=== PATIENT | male | born 1970 | race Caucasian/White ===

== ENCOUNTER 2016-05-26 13:18 | Emergency (ER) | payer OTHER ==
[~2016-05-26] VITALS: Ht 182.9 cm; Wt 99.8 kg
[2016-05-26] MEDS ORDERED: CHLORDIAZEPOXIDE HCL 25 MG CAPSULE ONE (16:40)
[2016-05-26] MEDS ORDERED: FOLIC ACID 1 MG TABLET ONE (16:40)
[2016-05-26] MEDS ORDERED: THIAMINE HCL 100 MG TABLET ONE (16:40)
[2016-05-26] MEDS ORDERED: LORAZEPAM INJ 2 MG/ML VIAL ONE (16:41)
[2016-05-26] MEDS ORDERED: FOLIC ACID 1 MG TABLET PO ONE (17:00)
[2016-05-26] MEDS ORDERED: CHLORDIAZEPOXIDE HCL 25 MG CAPSULE PO ONE (17:00)
[2016-05-26] MEDS ORDERED: LORAZEPAM INJ 2 MG/ML VIAL IM ONE (17:00)
[2016-05-26] MEDS ORDERED: THIAMINE HCL 100 MG TABLET PO ONE (17:00)
[2016-05-26 18:08] VITALS: BP 136/98
== END 2016-05-26 18:09 | disposition home or self-care (01) ==
LOC: ER 13:22
DX: F10.239 Alcohol dependence with withdrawal, unspecified (principal); Z88.6 Allergy status to analgesic agent
CPT/HCPCS: 93005; 96372; 99284; A4606; J2060; Z7610

== ENCOUNTER 2016-07-07 16:25 | Emergency (ER) | payer OTHER ==
[~2016-07-07] VITALS: Ht 180.3 cm; Wt 95.3 kg
[2016-07-07 17:00] LABS: BASOPHILS % (AUTO) 1.1 % (0.0-2.0); EOSINOPHILS % (AUTO) 0.8 % (0.0-6.0); HEMATOCRIT 44 % (39-51); HEMOGLOBIN 14.6 g/dL (13.5-17.5); LYMPHOCYTES # (AUTO) 1.3 /CMM (0.8-4.8); LYMPHOCYTES % (AUTO) 37.2 % (20.0-44.0); MEAN CORPUSCULAR HEMOGLOBIN 30 PG (26.0-33.0); MEAN CORPUSCULAR HGB CONC 33 g/dl (31.0-36.0); MEAN CORPUSCULAR VOLUME 92 fL (80-96); MONOCYTES # (AUTO) 0.3 /CMM (0.1-1.30); MONOCYTES % (AUTO) 8.6 % (2.0-12.0); NEUTROPHILS # (AUTO) 1.8 /CMM (1.8-8.9); NEUTROPHILS % (AUTO) 52.3 % (43.0-81.0); PLATELET COUNT (AUTO) 210 /CMM (150-450); RDW COEFFICIENT OF VARIATION 13.2 (11.5-15.0); WHITE BLOOD COUNT (AUTO) 3.4 K/uL (4.3-11.0)
[2016-07-07 17:13] LABS: CARBON DIOXIDE 23 mmol/L (21-32); CHLORIDE 100 mmol/L (98-107); CREATININE 0.7 mg/dL (0.6-1.3); GFR 123 mL/min (>60); GLUCOSE 134 mg/dL (74-106); POTASSIUM 3.5 mmol/L (3.5-5.1); SODIUM SERUM 139 mmol/L (136-145); UREA NITROGEN, BLOOD 11 mg/dL (7-18)
[2016-07-07 17:19] LABS: ALANINE AMINOTRANSFERASE 33 U/L (12-78); ALKALINE PHOSPHATASE 92 U/L (46-116); ASPARTATE AMINOTRANSFERASE 35 U/L (15-37); BILIRUBIN,DIRECT 0.1 mg/dL (0.0-0.2); BILIRUBIN,TOTAL 0.7 mg/dL (0.2-1.0); INR 0.92 (0.87-1.13); PROTHROMBIN TIME 9.6 SECS (9.5-12.7); TOTAL PROTEIN, SERUM 7.5 g/dL (6.4-8.2)
[2016-07-07 17:25] LABS: TROPONIN I < 0.017 ng/mL (0.00-0.056)
[2016-07-07 17:30] LABS: ALCOHOL, BLOOD 142 mg/dL (0-0); LIPASE 105 U/L (73-393)
--- NOTE | 2016-07-07 17:36 | NUR ---
BIB SELF, CC: CHEST PAIN AND LEFT SIDED PAIN SINCE YESTERDAY, NO RESPIRATORY DISTRESS, NO OTHER COMPLAINTS OF DISTRESS, WILL CONTINUE TO [facility] CLOSELY. MD AT BEDSIDE, PLACED IN GOWN AND ON MONITOR.
[2016-07-07] MEDS ORDERED: LORAZEPAM 1 MG TABLET ONE (18:10)
[2016-07-07] MEDS: LORAZEPAM 1 MG TABLET PO ONE (18:16)
[2016-07-07 18:17] VITALS: BP 156/89
== END 2016-07-07 18:18 | disposition home or self-care (01) ==
LOC: ER 16:27
DX: F10.239 Alcohol dependence with withdrawal, unspecified (principal); R20.0 Anesthesia of skin; R79.1 Abnormal coagulation profile; F17.200 Nicotine dependence, unspecified, uncomplicated; Z88.6 Allergy status to analgesic agent
CPT/HCPCS: 36415; 71010-TC; 80048-TC; 80076-TC; 83690-TC; 84484-TC; 85025-TC; 85730-TC; A4606; G0480; Z7610

== ENCOUNTER 2016-09-15 07:20 | Emergency (ER) | payer SELFPAY ==
[~2016-09-15] VITALS: Ht 172.7 cm; Wt 86.2 kg
[2016-09-15] MEDS ORDERED: LORAZEPAM 1 MG TABLET ONE (07:37)
[2016-09-15] MEDS ORDERED: LORAZEPAM 1 MG TABLET PO ONE (08:00)
[2016-09-15 08:09] VITALS: BP 151/105
== END 2016-09-15 08:11 | disposition home or self-care (01) ==
LOC: ER 07:23
DX: F10.239 Alcohol dependence with withdrawal, unspecified (principal); F17.200 Nicotine dependence, unspecified, uncomplicated; Z88.6 Allergy status to analgesic agent
CPT/HCPCS: A4606; Z7610

== ENCOUNTER → 2018-09-13 | Emergency (ER) | payer SELFPAY ==
[~2018-09-13] VITALS: Ht 180.3 cm; Wt 86.2 kg
[~2018-09-13] MED LIST: CLONIDINE HCL 0.1 MG TABLET ONE; CLONIDINE HCL 0.1 MG TABLET PO ONE; LORAZEPAM INJ 2 MG/ML VIAL IV ONE; LORAZEPAM INJ 2 MG/ML VIAL ONE; MAGNESIUM OXIDE 400 MG TABLET ONE; MAGNESIUM OXIDE 400 MG TABLET PO ONE; POTASSIUM CHLORIDE 20 MEQ TAB.PRT.SR PO ONE
--- NOTE | 2018-09-13 02:35 | NUR ---
BIBA FOR C/O CP AND ALCOHOL WITHDRAWAL. RPORTED LAST DRINK "VODKA A LOT 12 HOURS AGO". PT WAS PLACED ON A MONITOR.
[2018-09-13 02:58] LABS: BASOPHILS % (AUTO) 0.9 % (0.0-2.0); EOSINOPHILS % (AUTO) 0.4 % (0.0-6.0); HEMATOCRIT 41 % (39-51); HEMOGLOBIN 14.2 g/dL (13.5-17.5); LYMPHOCYTES # (AUTO) 1.2 /CMM (0.8-4.8); LYMPHOCYTES % (AUTO) 38.3 % (20.0-44.0); MEAN CORPUSCULAR HGB CONC 35 g/dl (31.0-36.0); MEAN CORPUSCULAR VOLUME 95 fL (80-96); MONOCYTES # (AUTO) 0.4 /CMM (0.1-1.30); MONOCYTES % (AUTO) 12.8 % (2.0-12.0); NEUTROPHILS # (AUTO) 1.5 /CMM (1.8-8.9); NEUTROPHILS % (AUTO) 47.6 % (43.0-81.0); PLATELET COUNT (AUTO) 152 /CMM (150-450); RED BLOOD CELL COUNT(AUTO) 4.31 MIL/uL (4.5-6.0); WHITE BLOOD COUNT (AUTO) 3.1 K/uL (4.3-11.0)
[2018-09-13 03:04] LABS: CALCIUM, SERUM 8.4 mg/dL (8.5-10.1); CREATININE 0.7 mg/dL (0.6-1.3); MAGNESIUM 1.6 mg/dL (1.8-2.4); POTASSIUM 3.4 mmol/L (3.5-5.1)
--- NOTE | 2018-09-13 04:03 | NUR ---
CALLED JOHN FOR REPORT
--- NOTE | 2018-09-13 04:21 | NUR ---
SLEEPING COMFORTABLY. AROUSES EASILY. BREATHING EVENLY. REMAINED ON MONITOR ,
--- NOTE | 2018-09-13 06:27 | NUR ---
SLEEPING IN BED. AROUSES EASILY. BREATHIN EVENLY. VSS. WILL CONT TO MONITOR ,
--- NOTE | 2018-09-13 09:14 | NUR ---
patient a/ox4, breathing even and unlabored, no sob noted, ambulates with steady gait. Patient offered food and water. Denies being homeless. Refused tap card, per patient he will walk home, he lives nearby. Patient in no distress. Discharge instructions provided and rx given. Patient verbalized discharge instructions. Left in stable condition. Addendum: 09/13/18 at 0917 by ROALCANCES addendum: PIV removed.
[2018-09-13 09:16] VITALS: BP 137/78
== END | disposition home or self-care (01) ==
LOC: ER 02:27
DX: F10.10 Alcohol abuse, uncomplicated (principal); E87.6 Hypokalemia; E83.42 Hypomagnesemia; D72.819 Decreased white blood cell count, unspecified; F32.9 Major depressive disorder, single episode, unspecified; F17.210 Nicotine dependence, cigarettes, uncomplicated; Z88.6 Allergy status to analgesic agent; Y90.8 Blood alcohol level of 240 mg/100 ml or more
CPT/HCPCS: 36415; 71045; 80048; 80307; 83735; 84484; 85025; 93005; 96374; 96376; 99284; J2060 ×2; G0480

== ENCOUNTER 2018-09-17 01:43 | Inpatient (IN) | payer MEDICAID, OTHER ==
[~2018-09-17] VITALS: Ht 180.3 cm; Wt 93.0 kg
[2018-09-17 02:19] LABS: BASOPHILS % (AUTO) 0.5 % (0.0-2.0); HEMATOCRIT 37 % (39-51); HEMOGLOBIN 12.7 g/dL (13.5-17.5); LYMPHOCYTES # (AUTO) 0.9 /CMM (0.8-4.8); LYMPHOCYTES % (AUTO) 17.8 % (20.0-44.0); MEAN CORPUSCULAR HGB CONC 35 g/dl (31.0-36.0); MEAN CORPUSCULAR VOLUME 95 fL (80-96); MONOCYTES # (AUTO) 0.3 /CMM (0.1-1.30); MONOCYTES % (AUTO) 6.2 % (2.0-12.0); NEUTROPHILS # (AUTO) 3.6 /CMM (1.8-8.9); NEUTROPHILS % (AUTO) 74.5 % (43.0-81.0); PLATELET COUNT (AUTO) 109 /CMM (150-450); RED BLOOD CELL COUNT(AUTO) 3.83 MIL/uL (4.5-6.0); WHITE BLOOD COUNT (AUTO) 4.9 K/uL (4.3-11.0)
[2018-09-17] MEDS ORDERED: LORAZEPAM INJ 2 MG/ML VIAL ONE (02:27)
[2018-09-17 02:29] LABS: ALANINE AMINOTRANSFERASE 60 U/L (12-78); ALBUMIN 3.5 g/dL (3.4-5.0); ALCOHOL, BLOOD < 3 mg/dL (0-0); ALKALINE PHOSPHATASE 84 U/L (46-116); ASPARTATE AMINOTRANSFERASE 46 U/L (15-37); BILIRUBIN,DIRECT 0.2 mg/dL (0.0-0.2); BILIRUBIN,TOTAL 0.9 mg/dL (0.2-1.0); CALCIUM, SERUM 8.9 mg/dL (8.5-10.1); CARBON DIOXIDE 24 mmol/L (21-32); CHLORIDE 100 mmol/L (98-107); GLUCOSE 316 mg/dL (74-106); POTASSIUM 3.7 mmol/L (3.5-5.1); SODIUM SERUM 137 mmol/L (136-145); TOTAL PROTEIN, SERUM 6.9 g/dL (6.4-8.2); UREA NITROGEN, BLOOD 16 mg/dL (7-18)
[2018-09-17] MEDS ORDERED: LORAZEPAM INJ 2 MG/ML VIAL IVP ONE (02:30)
[2018-09-17] MEDS ORDERED: LEVETIRACETAM (500MG) 1,000 MG in IV NS 0.9% 100 ML IV SCH (03:30)
[2018-09-17] MEDS ORDERED: LEVETIRACETAM (500MG) 500 MG/5 ML VIAL IV ONE ×2 (03:33→03:34)
[2018-09-17 06:20] VITALS: BP 169/98
[2018-09-17] MEDS ORDERED: Thiamine 100 MG in IV D5W 50 ML IV SCH ×2 (06:30→08:00)
[2018-09-17] MEDS ORDERED: ONDANSETRON HCL/PF 4 MG/2 ML VIAL IVP PRN (07:00)
[2018-09-17] MEDS ORDERED: MAGNESIUM HYDROXIDE 30 ML UDC PO PRN (07:00)
[2018-09-17] MEDS ORDERED: ACETAMINOPHEN 325 MG TABLET PO PRN (07:00)
[2018-09-17] MEDS ORDERED: HYDROCODONE/APAP 5/325MG 1 EACH TABLET PO PRN (07:00)
[2018-09-17] MEDS ORDERED: MAG HYDROX/AL HYDROX/SIMETH 30 ML UDC PO PRN (07:00)
[2018-09-17] MEDS ORDERED: ZOLPIDEM TARTRATE 5 MG TABLET PO PRN (07:00)
[2018-09-17] MEDS ORDERED: Z GUARD REMEDY 2 OZ OINT TP PRN (07:00)
[2018-09-17 07:54] LABS: ALBUMIN 3.3 g/dL (3.4-5.0); CALCIUM, SERUM 8.6 mg/dL (8.5-10.1); CREATININE 0.9 mg/dL (0.6-1.3); POTASSIUM 3.3 mmol/L (3.5-5.1); TOTAL PROTEIN, SERUM 6.5 g/dL (6.4-8.2)
[2018-09-17 07:59] LABS: BASOPHILS % (AUTO) 0.4 % (0.0-2.0); HEMATOCRIT 36 % (39-51); HEMOGLOBIN 12.4 g/dL (13.5-17.5); LYMPHOCYTES # (AUTO) 1.4 /CMM (0.8-4.8); LYMPHOCYTES % (AUTO) 28.2 % (20.0-44.0); MEAN CORPUSCULAR HGB CONC 35 g/dl (31.0-36.0); MEAN CORPUSCULAR VOLUME 95 fL (80-96); MONOCYTES # (AUTO) 0.4 /CMM (0.1-1.30); MONOCYTES % (AUTO) 7.9 % (2.0-12.0); NEUTROPHILS # (AUTO) 3.2 /CMM (1.8-8.9); NEUTROPHILS % (AUTO) 62.5 % (43.0-81.0); PLATELET COUNT (AUTO) 111 /CMM (150-450); RED BLOOD CELL COUNT(AUTO) 3.74 MIL/uL (4.5-6.0); WHITE BLOOD COUNT (AUTO) 5.1 K/uL (4.3-11.0)
[2018-09-17 08:00] VITALS: BP 154/99
[2018-09-17] MEDS: FOLIC ACID 1 MG TABLET PO SCH (08:27)
[2018-09-17] MEDS: IV NS 0.9% 1,000 ML IV PRN (08:27)
[2018-09-17 12:00] VITALS: BP_SYST 157; BP_DIAS 103; BP_DIAS 98
[2018-09-17] MEDS: DEXAMETHASONE SOD PHOSPHATE 10 MG/ML VIAL IV SCH ×2 (14:15→21:30)
[2018-09-17] MEDS: AMLODIPINE BESYLATE 10 MG TABLET PO SCH (14:15)
[2018-09-17] MEDS ORDERED: POTASSIUM CHLORIDE 20 MEQ TAB.PRT.SR PO SCH (14:30)
[2018-09-17 16:00] VITALS: BP 159/102
[2018-09-17] MEDS ORDERED: hydrALAZINE HCL 25 MG TABLET PO SCH (17:00)
[2018-09-17] MEDS ORDERED: hydrALAZINE HCL 25 MG TABLET PO PRN (17:00)
[2018-09-17 20:00] VITALS: BP 148/88
[2018-09-17] MEDS: LEVETIRACETAM (250 MG) 250 MG TABLET PO SCH (21:30)
[2018-09-17] MEDS: LORAZEPAM INJ 2 MG/ML VIAL IV PRN (22:43)
[2018-09-18] VITALS: BP 135/88
[2018-09-18] MEDS: IV NS 0.9% 1,000 ML IV PRN (00:58)
[2018-09-18 04:00] VITALS: BP 149/95
[2018-09-18 06:20] LABS: BASOPHILS % (AUTO) 0.3 % (0.0-2.0); EOSINOPHILS % (AUTO) 0.1 % (0.0-6.0); HEMATOCRIT 39 % (39-51); HEMOGLOBIN 13.5 g/dL (13.5-17.5); LYMPHOCYTES # (AUTO) 0.9 /CMM (0.8-4.8); MEAN CORPUSCULAR HGB CONC 35 g/dl (31.0-36.0); MEAN CORPUSCULAR VOLUME 95 fL (80-96); MONOCYTES # (AUTO) 0.3 /CMM (0.1-1.30); MONOCYTES % (AUTO) 5.7 % (2.0-12.0); NEUTROPHILS # (AUTO) 4.6 /CMM (1.8-8.9); NEUTROPHILS % (AUTO) 78.9 % (43.0-81.0); PLATELET COUNT (AUTO) 119 /CMM (150-450); RED BLOOD CELL COUNT(AUTO) 4.06 MIL/uL (4.5-6.0); WHITE BLOOD COUNT (AUTO) 5.8 K/uL (4.3-11.0)
[2018-09-18 06:38] LABS: THYROID STIMULATING HORMONE 0.352 uIU/mL (0.358-3.74)
[2018-09-18 06:50] LABS: ALBUMIN 3.1 g/dL (3.4-5.0); CALCIUM, SERUM 8.5 mg/dL (8.5-10.1); CREATININE 0.8 mg/dL (0.6-1.3); MAGNESIUM 2.1 mg/dL (1.8-2.4); PHOSPHORUS 4.3 mg/dL (2.5-4.9); POTASSIUM 4.1 mmol/L (3.5-5.1); TOTAL PROTEIN, SERUM 6.7 g/dL (6.4-8.2)
[2018-09-18 08:00] VITALS: BP 122/75
[2018-09-18] MEDS: FOLIC ACID 1 MG TABLET PO SCH (08:22)
[2018-09-18] MEDS: LEVETIRACETAM (250 MG) 250 MG TABLET PO SCH (08:23)
[2018-09-18] MEDS: AMLODIPINE BESYLATE 10 MG TABLET PO SCH (08:23)
[2018-09-18] MEDS: DEXAMETHASONE SOD PHOSPHATE 10 MG/ML VIAL IV SCH (08:23)
[2018-09-18] MEDS: LORAZEPAM INJ 2 MG/ML VIAL IV PRN (08:31)
[2018-09-18] MEDS ORDERED: THIAMINE HCL 100 MG TABLET PO SCH (09:00)
[2018-09-18] MEDS ORDERED: GADODIAMIDE 5 MMOL/10 ML VIAL IJ ONE (13:20)
[2018-09-18 16:00] VITALS: BP 131/77
== END 2018-09-18 15:50 | disposition home or self-care (01) | DRG 775 ==
LOC: ER 01:45 → TELE-TD 05:46 → TELE1 20:29 → MEDSG1 09-18 10:32
PROVIDERS: ADMIT Nurse Practitioner Acute Care; ATTEND Nurse Practitioner Acute Care
DX: F10.239 Alcohol dependence with withdrawal, unspecified (principal); C79.31 Secondary malignant neoplasm of brain; D69.6 Thrombocytopenia, unspecified; I10 Essential (primary) hypertension; R73.9 Hyperglycemia, unspecified; G40.89 Other seizures; Z87.891 Personal history of nicotine dependence
CPT/HCPCS: 36415; 70450-TC; 70553-TC; 80048-TC; 80053-TC; 80061-TC; 80076-TC; 83735-TC; 84100-TC; 84443-TC; 84484-TC; 85025-TC; 87081-TC; A9579; G0378; G0480; J1100; J1953; J2060; J3411; J7030; J7060